=== PATIENT | male | born 1940 | race Caucasian/White ===

== ENCOUNTER → 2016-03-20 | Day surgery (SDC) | payer MEDICARE ==
[~2016-03-20] VITALS: Ht 177.8 cm; Wt 90.7 kg
[~2016-03-20] MED LIST: /GLIP10TAB PO; /SUCR1TA OR; BUPIVACAINE HCL 0.5% 30 ML VIAL As Ordered ONE; BYETTA SC; COLA100C2 OR; DILA2TAB OR; ENAL10TA2 PO; HUMU1INJ2 SC; HYDR1TAB97 PO; INSUDET SC; LIDOCAINE 1% SDV INJ 30 ML VIAL As Ordered ONE; LISI10TA2 PO; METF500T PO; METF500T4 PO; MIDAZOLAM INJ 2 MG/2 ML VIAL (J2250) As Ordered ONE; ONDANSETRON 4MG/2ML VIAL (J2405) As Ordered ONE; PRIL20CA OR; PROPOFOL 200 MG/20 ML VIAL As Ordered ONE; SENNSYP PO; SIMV10TA2 PO; SLOWTAB3 PO; VICO5TAB OR; ZOLPIDEM TARTRATE PO; dexameTHASONE 4 MG/ML 1ML VIAL (J1100) As Ordered ONE; fentaNYL 100 MCG/2 ML INJECTION (J3010) As Ordered ONE
[2016-03-20 09:09] VITALS: BP 152/68
--- NOTE | 2016-03-20 16:54 | RO ---
DATE OF PROCEDURE: 03/20/2016 PREOPERATIVE DIAGNOSIS: Left foot exostosis POSTOPERATIVE DIAGNOSIS: Left foot soft tissue cyst. PROCEDURE: Excision cyst left foot. SURGEON: Raymundo Villela DPM DELIVERY LEAD: none ANESTHESIA: Monitored anesthesia care with preoperative injection of 17 mL of 1:1 mixture of 1% lidocaine plain and 0.5% Marcaine plain. ESTIMATED BLOOD LOSS: Minimal. MATERIALS: #4-0 Vicryl and #4-0 nylon. INJECTABLES: 1 mL of Decadron, 4 mg per mL. SPECIMEN: Left foot cyst. COMPLICATIONS: None. CONDITION: Stable. Mr. Travis Jackson is a 76-year-old male who presents to [facility] with complaints of painful dorsal bump to his left foot. He presents today for surgical correction. The patient's side and site were identified and marked in the preoperative holding area. Consent was reviewed and obtained. The risks, complications, and alternatives to the procedure were explained to the patient in detail. All questions were answered. DESCRIPTION OF PROCEDURE: The patient was brought to the operating room, placed on the operative table in supine position, monitored anesthesia care was delivered by the anesthesia team. Perioperative injection of 17 mL of a 1:1 mixture of 1% lidocaine plain and 0.5% Marcaine plain were injected into the left foot. The patient received Ancef preoperatively. The left foot was prepped and draped in the usual sterile fashion. The tourniquet was inflated to 250 mmHg. A dorsal incision was drawn over the outlined mass to the left foot. This was carried through with a #15 blade. Dissection was carried around, was identified to be a cyst approximately 2 cm in diameter using tenotomy scissors. The cyst was carefully freed from soft tissue attachments and excised in total. This was sent for pathology. There was a small dorsal exostosis, which was smoothed with a rasp. The site was irrigated with normal saline. The cyst appeared to have been arising from the extensor tendons. Incision was closed with #4-0 Vicryl and #4-0 nylon. Sterile dressings were applied, tourniquet was deflated, the patient was brought to the post-anesthesia care unit (PACU), vital signs stable, neurovascular status intact. He will be weightbearing as tolerated on the left foot. He will followup in our office in 2 days. BILLIE
== END | disposition home or self-care (01) ==
LOC: M SDC 05:55
PROVIDERS: ATTEND Podiatrist Foot & Ankle Surgery
DX: M79.89 Other specified soft tissue disorders (principal); E11.21 Type 2 diabetes mellitus with diabetic nephropathy; B35.1 Tinea unguium; M25.775 Osteophyte, left foot; I10 Essential (primary) hypertension; E78.00 Pure hypercholesterolemia, unspecified; M12.9 Arthropathy, unspecified; Z79.899 Other long term (current) drug therapy
CPT/HCPCS: 28039; 88302; J0690; J1100; J2250; J2405; J3010

== ENCOUNTER → 2016-04-19 | Outpatient (CLI) | payer MEDICARE ==
[~2016-04-19] MED LIST changes: -BUPIVACAINE HCL 0.5% 30 ML VIAL As Ordered ONE; +HYDR-3713 PO; -HYDR1TAB97 PO; -LIDOCAINE 1% SDV INJ 30 ML VIAL As Ordered ONE; -MIDAZOLAM INJ 2 MG/2 ML VIAL (J2250) As Ordered ONE; -ONDANSETRON 4MG/2ML VIAL (J2405) As Ordered ONE; -PROPOFOL 200 MG/20 ML VIAL As Ordered ONE; -dexameTHASONE 4 MG/ML 1ML VIAL (J1100) As Ordered ONE; -fentaNYL 100 MCG/2 ML INJECTION (J3010) As Ordered ONE
--- NOTE | 2016-04-19 16:06 | REP ---
Whole body PET / CT scan: Comparison studies are the CT studies of the chest dated 02/11/2016 and 07/20/2015. An enlarging nodular density was noted in the right lower lobe on the comparison chest CTs. Whole body PET / CT scan today is performed from skull base to the upper thighs. Neck and supraclavicular areas: There are no hypermetabolic foci. Chest: There are no hypermetabolic foci. There is no radiolabeling of the right lower lobe lung nodule. The standard uptake value within this nodule is 1.0. Abdomen, pelvis and upper thighs: There is nonspecific bowel uptake. No hypermetabolic foci are identified. Impression: The patients known right lung nodule demonstrates no radiolabeling. There are no hypermetabolic foci otherwise. The study is performed with 9.6 mCi of F-18 FDG. Signed by Kayden Doyle MD 04/19/2016 03:57 P
== END ==
LOC: M RAD 12:04
PROVIDERS: ATTEND Internal Medicine Pulmonary Disease
DX: R91.1 Solitary pulmonary nodule (principal)
CPT/HCPCS: 78815; A9552

== ENCOUNTER → 2016-08-03 | Outpatient (CLI) | payer MEDICARE ==
--- NOTE | 2016-08-03 10:51 | REP ---
MR CERVICAL SPINE WITHOUT CONTRAST: HISTORY: Radiculitis. The examination is incomplete as only sagittal T1- and T2-weighted images were obtained. Disc bulges are present at the C4-5 and C7-T1 levels. Disc bulges with associated osteophyte formation are present at the C5-6 and C6-7 levels. There is minimal to mild effacement of the thecal sac without spinal cords compression. The spinal cord is normal in signal intensity. The C5-6 and C6-7 intervertebral discs are decreased in height consistent with disc degeneration. Normal signal intensity is present in the cervical vertebral bodies. IMPRESSION: Incomplete examination demonstrating cervical spondylosis at the C4-5 through C7-T1 levels. An addendum will be added if the patient returns to complete the examination. Signed by Sammy Dubois MD 08/03/2016 11:06 A
== END ==
LOC: M RAD 09:08
PROVIDERS: ATTEND Pain Medicine Interventional Pain Medicine
DX: M47.812 Spondylosis without myelopathy or radiculopathy, cervical region (principal); M54.12 Radiculopathy, cervical region; M50.321 Other cervical disc degeneration at C4-C5 level; M50.322 Other cervical disc degeneration at C5-C6 level; M50.323 Other cervical disc degeneration at C6-C7 level; M25.512 Pain in left shoulder

== ENCOUNTER 2016-10-17 09:13 | Outpatient (CLI) | payer MEDICARE ==
[~2016-10-17 09:13] MED LIST changes: -METF500T PO; +METF500T13 PO
[2016-10-17] MEDS ORDERED: MIDAZOLAM INJ 2 MG/2 ML VIAL (J2250) As Ordered ONE (10:55)
--- NOTE | 2016-10-17 12:19 | REP ---
MR CERVICAL SPINE WITHOUT CONTRAST: HISTORY: Radiculopathy. COMPARISON: 08/03/2016 A disc bulge is present at the C3-4 level. There is mild effacement of the thecal sac without spinal cord compression. Bilateral uncinate process and left facet hypertrophy are present. These findings produce mild and moderate narrowing of the right and left C3 neural foraminal respectively. A disc bulge and small central disc protrusion are present at the C4-5 level. There is mild effacement of the thecal sac without spinal cord compression. Bilateral uncinate process and left facet hypertrophy are present. These findings produce mild narrowing of the C4 neural foramina. A disc bulge with associated osteophyte formation is present at the C5-6 level. There is mild spinal cord compression. Bilateral uncinate process hypertrophy is present. This produces mild and moderate narrowing of the right and left C5 neural foramina respectively. A disc bulge with associated osteophyte formation is present at the C6-7 level. There is moderate effacement of the thecal sac without spinal cord compression. Bilateral uncinate process hypertrophy is present. This produces moderate narrowing of the C6 neural foramina. There is no other disc bulge or herniation. The remaining neural foramina are patent. The spinal cord is normal in signal intensity. The spinal cord is small in size from the C4-5 level inferior to the C5-6 level. The C5-6 and C6-7 intervertebral discs are decreased in height consistent with disc degeneration. Normal signal intensity is present in the cervical vertebral bodies. IMPRESSION: 1. There is cervical spondylosis at the C3-4 through C6-7 levels most significant at the C5-6 level where there is mild spinal cord compression. 2. 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 Signed by Sammy Dubois MD 10/17/2016 01:07 P
[2016-10-17 12:37] VITALS: BP 134/65
== END 2016-10-17 12:40 ==
LOC: M RAD 09:13
PROVIDERS: ATTEND Nurse Practitioner Family
DX: M47.892 Other spondylosis, cervical region (principal); G95.89 Other specified diseases of spinal cord; M54.12 Radiculopathy, cervical region; M25.512 Pain in left shoulder
CPT/HCPCS: 72141; J2250

== ENCOUNTER 2016-11-22 09:19 | Emergency (ER) | payer MEDICARE ==
[~2016-11-22] VITALS: Ht 175.3 cm; Wt 95.0 kg
[2016-11-22 10:22] LABS: BASO % 0.3 % (0.0-1.0); EOS # 0.4 K/mm3 (0.0-0.50); EOS % 4.3 % (0.0-3.0); LARGE UNSTAINED CELL # 0.1 K/mm3 (0.0-0.4); LARGE UNSTAINED CELL % 1.8 % (0.0-4.0); LYMPH # 1.4 K/mm3 (1.5-4.5); LYMPH % 17.3 % (24.0-44.0); MEAN CORPUSCULAR HEMOGLOBIN 32.8 pg (27.0-33.0); MEAN CORPUSCULAR HGB CONC 35.3 g/dl (32.0-36.5); MEAN CORPUSCULAR VOLUME 92.7 fl (80.0-96.0); MONO # 0.4 K/mm3 (0.0-0.8); MONO % 5.3 % (0.0-5.0); NEUTROPHILS # 5.7 K/mm3 (1.8-7.7); PLATELET COUNT, AUTOMATED 229 k/mm3 (150-450); RED CELL DISTRIBUTION WIDTH 12.6 % (11.5-14.5)
[2016-11-22 10:43] LABS: ERYTHROCYTE SEDIMENTATION RATE 31 mm/hr (0-20)
--- NOTE | 2016-11-22 10:49 | REP ---
Clinical: Pain. Technique: AP, lateral, bilateral oblique views of the left elbow. Findings: Age-related degenerative changes include spurring and cortical irregularity involving the distal humerus as well as the proximal radius and ulna. No acute fracture dislocation. No effusion. Impression: Age-related arthritic degenerative changes. No acute fracture. Signed by Kirit Messer MD 11/22/2016 10:39 A
[2016-11-22 11:44] LABS: ANION GAP 8 MEQ/L (8-16); BLOOD UREA NITROGEN 20 MG/DL (7-18); CALCIUM LEVEL 8.9 MG/DL (8.8-10.2); CARBON DIOXIDE LEVEL 29 MEQ/L (21-32); CHLORIDE LEVEL 104 MEQ/L (98-107); GLOMERULAR FILTRATION RATE > 60.0 (>42); GLUCOSE, FASTING 159 MG/DL (83-110); POTASSIUM SERUM 4.4 MEQ/L (3.5-5.1); SODIUM LEVEL 141 MEQ/L (136-145)
[2016-11-22] MEDS ORDERED: IBUP-1022 PO (11:53)
[2016-11-22 12:13] VITALS: BP 144/63
== END 2016-11-22 12:17 | disposition home or self-care (01) ==
LOC: M ED 09:19
DX: M25.522 Pain in left elbow (principal); E10.9 Type 1 diabetes mellitus without complications; I10 Essential (primary) hypertension; E78.5 Hyperlipidemia, unspecified; Z79.899 Other long term (current) drug therapy; Z79.4 Long term (current) use of insulin

== ENCOUNTER 2017-04-30 08:21 | Emergency (ER) | payer MEDICARE ==
[2017-04-30] MEDS: NS 1,000 ML IV (09:00)
[2017-04-30] MEDS ORDERED: BENZONATATE 100 MG CAP PO (09:15)
[2017-04-30] MEDS: IPRATROPIUM 0.5MG/ALBUTEROL 2.5MG INH SOL UD 3ML (DUONEB)(J7620) NEB (09:18)
[2017-04-30 09:25] LABS: BEDSIDE GLUCOSE 68 MG/DL (83-110)
[2017-04-30 09:26] LABS: BASO % 0.5 % (0.0-1.0); EOS # 0.3 10^3/uL (0.0-0.50); EOS % 3.6 % (0.0-3.0); HEMATOCRIT 39.7 % (42.0-52.0); HEMOGLOBIN 13.5 g/dl (14.0-18.0); IMMATURE GRANULOCYTE % 0.3 % (0-3.0); LYMPH # 1.9 10^3/uL (1.5-4.5); LYMPH % 25.7 % (24.0-44.0); MEAN CORPUSCULAR VOLUME 91.1 fl (80.0-96.0); MONO # 0.7 10^3/uL (0.0-0.8); MONO % 9.7 % (0.0-5.0); NEUTROPHILS # 4.5 10^3/uL (1.8-7.7); NEUTROPHILS % 60.2 % (36.0-66.0); PLATELET COUNT, AUTOMATED 235 10^3/uL (150-450); RED BLOOD COUNT 4.36 10^6/uL (4.30-6.10); RED CELL DISTRIBUTION WIDTH 12.4 % (11.5-14.5); WHITE BLOOD COUNT 7.4 10^3/uL (4.0-10.0)
[2017-04-30 09:47] LABS: ANION GAP 8 MEQ/L (8-16); BLOOD UREA NITROGEN 13 MG/DL (7-18); CALCIUM LEVEL 8.7 MG/DL (8.8-10.2); CARBON DIOXIDE LEVEL 30 MEQ/L (21-32); CHLORIDE LEVEL 102 MEQ/L (98-107); CPK CREATINE PHOSPHOKINASE 190 U/L (39-308); CREATININE FOR GFR 0.79 MG/DL (0.70-1.30); GLOMERULAR FILTRATION RATE > 60.0 (>42); GLUCOSE, FASTING 73 MG/DL (70-100); MB/CK RELATIVE INDEX 0.52 (< OR =4); POTASSIUM SERUM 4.3 MEQ/L (3.5-5.1); SODIUM LEVEL 140 MEQ/L (136-145); TROPONIN I < 0.02 NG/ML (< 0.10)
[2017-04-30 09:52] LABS: INFLUENZA A AMPLIFICATION NEGATIVE (NEGATIVE); INFLUENZA B AMPLIFICATION NEGATIVE (NEGATIVE)
[2017-04-30] MEDS: dexameTHASONE 20 MG/5 ML VIAL (J1100) IV (10:36)
[2017-04-30 11:27] LABS: BEDSIDE GLUCOSE 83 MG/DL (83-110)
== END 2017-04-30 11:31 | disposition home or self-care (01) ==
LOC: M ED 08:21
DX: J20.9 Acute bronchitis, unspecified (principal); J06.9 Acute upper respiratory infection, unspecified; I44.0 Atrioventricular block, first degree; E11.9 Type 2 diabetes mellitus without complications; I10 Essential (primary) hypertension; E78.5 Hyperlipidemia, unspecified; Z87.01 Personal history of pneumonia (recurrent); Z79.4 Long term (current) use of insulin; Z79.899 Other long term (current) drug therapy
CPT/HCPCS: J1100

== ENCOUNTER 2017-05-07 06:16 | Emergency (ER) | payer MEDICARE ==
[2017-05-07] MEDS: ALBUTEROL SULFATE 2.5 MG/0.5 ML INH NEB SOLN INH (07:13)
[2017-05-07 07:15] LABS: BEDSIDE GLUCOSE 124 MG/DL (83-110)
[2017-05-07 07:20] LABS: BASO % 0.3 % (0.0-1.0); EOS # 0.2 10^3/uL (0.0-0.50); EOS % 1.9 % (0.0-3.0); HEMATOCRIT 37.6 % (42.0-52.0); HEMOGLOBIN 12.8 g/dl (14.0-18.0); IMMATURE GRANULOCYTE % 0.7 % (0-3.0); LYMPH # 1.6 10^3/uL (1.5-4.5); LYMPH % 12.7 % (24.0-44.0); MEAN CORPUSCULAR HEMOGLOBIN 30.8 pg (27.0-33.0); MEAN CORPUSCULAR VOLUME 90.4 fl (80.0-96.0); MONO # 1.1 10^3/uL (0.0-0.8); MONO % 8.5 % (0.0-5.0); NEUTROPHILS # 9.8 10^3/uL (1.8-7.7); NEUTROPHILS % 75.9 % (36.0-66.0); PLATELET COUNT, AUTOMATED 297 10^3/uL (150-450); RED BLOOD COUNT 4.16 10^6/uL (4.30-6.10); RED CELL DISTRIBUTION WIDTH 12.5 % (11.5-14.5); WHITE BLOOD COUNT 12.9 10^3/uL (4.0-10.0)
[2017-05-07] MEDS: BENZONATATE 100 MG CAP PO (07:23)
[2017-05-07 07:35] LABS: ANION GAP 8 MEQ/L (8-16); BLOOD UREA NITROGEN 14 MG/DL (7-18); CALCIUM LEVEL 8.7 MG/DL (8.8-10.2); CARBON DIOXIDE LEVEL 29 MEQ/L (21-32); CHLORIDE LEVEL 100 MEQ/L (98-107); CREATININE FOR GFR 0.87 MG/DL (0.70-1.30); GLOMERULAR FILTRATION RATE > 60.0 (>42); GLUCOSE, FASTING 130 MG/DL (70-100); POTASSIUM SERUM 4.8 MEQ/L (3.5-5.1); SODIUM LEVEL 137 MEQ/L (136-145)
== END 2017-05-07 08:32 | disposition home or self-care (01) ==
LOC: M ED 06:16
DX: J01.90 Acute sinusitis, unspecified (principal)
CPT/HCPCS: 71046

== ENCOUNTER 2018-09-21 08:43 | Emergency (ER) | payer MEDICARE ==
[~2018-09-21] VITALS: Ht 175.3 cm; Wt 93.2 kg
[~2018-09-21 08:43] MED LIST changes: -/SUCR1TA OR; +AUGM875T28 PO; +E-ZMIS3 XX; +GUAI1SOL2 PO; +IBUP-1022 PO; +PROAAER10 INH; +SUCR1TAB56 OR; +TERB250T12; +TESS100C PO; +VENTAER IN; +ZOFR4TAB14 PO
--- NOTE | 2018-09-21 09:58 | REP ---
Pelvis, left hip: Three views. History: Trauma. Findings: AP view of the pelvis shows an intact bony pelvic ring. There is mild to moderate bilateral hip joint osteoarthritis, left more so than right. Femoral heads are smooth and rounded. No fracture is seen. Periarticular soft tissues are unremarkable. There is some vascular calcification. Impression: Bilateral hip osteoarthritis, left greater than right. No fracture or subluxation seen. Electronically Signed by Armando Ball MD 09/21/2018 12:04 P
[2018-09-21 10:11] LABS: BASO # 0.1 10^3/uL (0.0-0.2); BASO % 0.7 % (0.0-1.0); EOS # 0.3 10^3/uL (0.0-0.50); EOS % 4.2 % (0.0-3.0); HEMATOCRIT 36.7 % (42.0-52.0); HEMOGLOBIN 12.5 g/dl (13.5-17.5); LYMPH # 1.7 10^3/uL (1.5-4.5); LYMPH % 23.6 % (24.0-44.0); MEAN CORPUSCULAR HEMOGLOBIN 32.3 pg (27.0-33.0); MEAN CORPUSCULAR HGB CONC 34.1 g/dl (32.0-36.5); MEAN CORPUSCULAR VOLUME 94.8 fl (80.0-96.0); MONO # 0.6 10^3/uL (0.0-0.8); MONO % 8.7 % (0.0-5.0); NEUTROPHILS # 4.5 10^3/uL (1.8-7.7); NEUTROPHILS % 62.5 % (36.0-66.0); PLATELET COUNT, AUTOMATED 251 10^3/uL (150-450); RED BLOOD COUNT 3.87 10^6/uL (4.30-6.10); WHITE BLOOD COUNT 7.2 10^3/uL (4.0-10.0)
--- NOTE | 2018-09-21 10:33 | REP ---
Left knee series: Four views. History: Trauma. Findings: Four views of the left knee demonstrate three compartment osteoarthritis. Chondrocalcinosis is noted. Nonarticular patellar spurring is seen consistent with quadriceps and patellar tendinosis tendonitis change. No fracture or subluxation seen. There is fullness in the suprapatellar bursa suggestive of a joint effusion. Impression: Three compartment osteoarthritis. Chondrocalcinosis. Probable joint effusion. No fracture or other acute bony abnormality seen. No sunrise view included. Electronically Signed by Armando Ball MD 09/21/2018 12:05 P
[2018-09-21] MEDS ORDERED: ISOVUE-370 76% 100ML VIAL (Q9967) As Ordered ONE (10:40)
[2018-09-21 10:44] LABS: ALBUMIN 3.7 GM/DL (3.2-5.2); BILIRUBIN,DIRECT 0.2 MG/DL (0.0-0.2); BILIRUBIN,TOTAL 0.6 MG/DL (0.2-1.0)
[2018-09-21 12:15] VITALS: BP 118/69
--- NOTE | 2018-09-21 12:18 | REP ---
CT abdomen and pelvis with IV but without oral contrast: History: Left upper quadrant and left flank pain. Trauma. Comparison CT study is from July 01, 2015. CT contrast dose: 100 ml of intravenous Isovue 370. CT findings: Preliminary digital sewage screen operator radiograph is unremarkable. The lung bases show mild pleuroparenchymal fibrosis bilaterally. There is a oval-shaped area of rounded atelectasis in the left lower lobe abutting the dome of the left hemidiaphragm. This is 4.1 cm in greatest diameter but is entirely unchanged from the July 01, 2015 prior study. There is also some calcific pleural plaquing adjacent to this. No pleural effusion or upper abdominal ascites is seen. The liver and the spleen are normal in size, homogeneous in texture. There is a tiny accessory splenule. No adrenal lesion is seen. The pancreas is unremarkable. The gallbladder shows no abnormality other than a phrygian cap morphology. There is no evidence of hemoperitoneum or pneumoperitoneum. No retroperitoneal hematoma is seen. The kidneys enhance symmetrically and appear morphologically intact. Seminal vesicles and urinary bladder are unremarkable. There is some vas deferens calcification. Dystrophic calcifications are seen in the prostate. Normal inguinal lymph nodes are seen bilaterally. No evidence of lymphadenopathy. No pelvic hematoma or mass lesion is observed. Normal appendix is noted in the right lower quadrant. There are areas of subcutaneous edema in the anterior aspect of the mid abdomen bilaterally which may reflect soft tissue contusion. No abdominal wall defect is seen. Bone window settings show no evidence of lumbar spine or other fracture. There is osteoarthritis of the hips and degenerative spondylosis in the spine. Incidental note is made of a vascular anatomic variant in that splenic artery takes a direct aortic origin. The left gastric appears to take a direct aortic origin as well. Impression: No traumatic intra-abdominal abnormality noted. Subcutaneous edema in the anterior abdominal wall bilaterally may be soft tissue contusions. Electronically Signed by Armando Ball MD 09/21/2018 01:37 P
== END 2018-09-21 12:16 | disposition home or self-care (01) ==
LOC: M ED 08:43
DX: S30.1XXA Contusion of abdominal wall, initial encounter (principal); M23.92 Unspecified internal derangement of left knee; W28.XXXA Contact with powered lawn mower, initial encounter; Y92.9 Unspecified place or not applicable; Y93.89 Activity, other specified; Y99.9 Unspecified external cause status; M16.0 Bilateral primary osteoarthritis of hip; M11.252 Other chondrocalcinosis, left hip; E78.00 Pure hypercholesterolemia, unspecified; I10 Essential (primary) hypertension; Z87.01 Personal history of pneumonia (recurrent); E11.9 Type 2 diabetes mellitus without complications; Z79.4 Long term (current) use of insulin; Z79.899 Other long term (current) drug therapy
CPT/HCPCS: 73502; 73564; 74177; 80047; 80076; 83690; 85025; 99284; Q9967

== ENCOUNTER → 2018-11-22 | Outpatient (REF) | payer MEDICARE ==
[~2018-11-22] MED LIST changes: +LISI10TA15 PO; -LISI10TA2 PO
== END ==
LOC: M LAB REF 10:12
PROVIDERS: ATTEND Nurse Practitioner
DX: R19.7 Diarrhea, unspecified (principal); R10.9 Unspecified abdominal pain

== ENCOUNTER 2018-12-05 10:23 | Day surgery (SDC) | payer MEDICARE ==
[~2018-12-05] VITALS: Ht 175.3 cm; Wt 95.3 kg
[2018-12-05] MEDS: NS 1,000 ML IV ONE (11:00)
[2018-12-05] MEDS ORDERED: PROPOFOL 500 MG/50 ML VIAL As Ordered ONE (11:34)
[2018-12-05] MEDS ORDERED: LIDOCAINE 2% INJ 100 MG/5 ML SDV (FOR ANES.) As Ordered ONE (11:34)
--- NOTE | 2018-12-05 11:46 | ROOR ---
Patient Name: Travis Jackson Procedure Date: 12/05/2018 11:25 AM Date of : 1940 Age: 78 Room: [facility] Gender: Male Note Status: Finalized Procedure: Colonoscopy Indications: Clinically significant diarrhea of unexplained origin Providers: Nick Mena Jr, MD Referring MD: KAROLYN MAYES MD Requesting Provider: Medicines: Propofol per Anesthesia Complications: No immediate complications. Procedure: Pre-Anesthesia Assessment: - Prior to the procedure, a History and Physical was performed, and patient medications and allergies were reviewed. The patient is competent. The risks and benefits of the procedure and the sedation options and risks were discussed with the patient. All questions were answered and informed consent was obtained. Patient identification and proposed procedure were verified by the physician and the nurse in the pre-procedure area and in the procedure room. Mental Status Examination: alert and oriented. Airway Examination: normal oropharyngeal airway and neck mobility. Respiratory Examination: clear to auscultation. CV Examination: normal. ASA Grade Assessment: II - A patient with mild systemic disease. After reviewing the risks and benefits, the patient was deemed in satisfactory condition to undergo the procedure. The anesthesia plan was to use moderate sedation / analgesia (conscious sedation). Immediately prior to administration of medications, the patient was re-assessed for adequacy to receive sedatives. The heart rate, respiratory rate, oxygen saturations, blood pressure, adequacy of pulmonary ventilation, and response to care were monitored throughout the procedure. The physical status of the patient was re-assessed after the procedure. The Colonoscope was introduced through the anus and advanced to the cecum, identified by appendiceal orifice and ileocecal valve. The colonoscopy was performed without difficulty. The patient tolerated the procedure well. The quality of the bowel preparation was adequate. Findings: The rectum, recto-sigmoid colon, descending colon, transverse colon, ascending colon, cecum, appendiceal orifice and ileocecal valve appeared normal. Biopsies for histology were taken with a cold forceps from the ascending colon, transverse colon, descending colon and sigmoid colon for evaluation of microscopic colitis. Multiple small-mouthed diverticula were found in the sigmoid colon. Non-bleeding hemorrhoids were found during endoscopy. The hemorrhoids were moderate, Grade II (internal hemorrhoids that prolapse but reduce spontaneously) and Grade III (internal hemorrhoids that prolapse but require manual reduction). Impression: - The rectum, recto-sigmoid colon, descending colon, transverse colon, ascending colon, cecum, appendiceal orifice and ileocecal valve are normal. Biopsied. - Diverticulosis in the sigmoid colon. - Non-bleeding hemorrhoids. Recommendation: - Repeat colonoscopy in 10 years for screening purposes. Nick Mena MD Nick Mena Jr, MD 12/05/2018 11:45:55 AM Electronically signed by Nick Mena Jr, MD Number of Addenda: 0 Note Initiated On: 12/05/2018 11:25 AM Estimated Blood Loss: Estimated blood loss: none.
[2018-12-05 12:05] VITALS: BP 123/82
== END 2018-12-05 12:17 | disposition home or self-care (01) ==
LOC: M OPP 10:23
PROVIDERS: ATTEND Surgery
DX: K64.2 Third degree hemorrhoids (principal); K57.30 Diverticulosis of large intestine without perforation or abscess without bleeding; R19.7 Diarrhea, unspecified; E11.9 Type 2 diabetes mellitus without complications; I10 Essential (primary) hypertension; Z79.4 Long term (current) use of insulin; Z79.899 Other long term (current) drug therapy

== ENCOUNTER → 2018-12-26 | Outpatient (CLI) | payer MEDICARE ==
[2018-12-26 10:23] LABS: BASO # 0.1 10^3/uL (0.0-0.2); BASO % 0.7 % (0.0-1.0); EOS # 0.3 10^3/uL (0.0-0.5); EOS % 3.9 % (0.0-3.0); HEMATOCRIT 41.3 % (42.0-52.0); HEMOGLOBIN 13.5 g/dl (13.5-17.5); LYMPH % 22.8 % (24.0-44.0); MEAN CORPUSCULAR HGB CONC 32.7 g/dl (32.0-36.5); MEAN CORPUSCULAR VOLUME 94.9 fl (80.0-96.0); MONO # 0.7 10^3/uL (0.0-0.8); MONO % 7.6 % (0.0-5.0); NEUTROPHILS # 5.7 10^3/uL (1.5-8.5); NEUTROPHILS % 64.7 % (36.0-66.0); PLATELET COUNT, AUTOMATED 230 10^3/uL (150-450); RED BLOOD COUNT 4.35 10^6/uL (4.30-6.10); WHITE BLOOD COUNT 8.8 10^3/uL (4.0-10.0)
[2018-12-26 10:46] LABS: BLOOD UREA NITROGEN 17 MG/DL (7-18); CALCIUM LEVEL 9.5 MG/DL (8.8-10.2); CARBON DIOXIDE LEVEL 33 MEQ/L (21-32); CHLORIDE LEVEL 104 MEQ/L (98-107); CREATININE FOR GFR 0.85 MG/DL (0.70-1.30); GLOMERULAR FILTRATION RATE > 60.0 (>42); GLUCOSE, FASTING 161 MG/DL (70-100); POTASSIUM SERUM 4.9 MEQ/L (3.5-5.1); SODIUM LEVEL 139 MEQ/L (136-145)
== END ==
LOC: M SMT 08:09
PROVIDERS: ATTEND Physician Assistant
DX: Z78.9 Other specified health status (principal); I10 Essential (primary) hypertension

== ENCOUNTER 2019-01-06 07:18 | Emergency (ER) | payer MEDICARE ==
[~2019-01-06] VITALS: Ht 175.3 cm; Wt 95.5 kg
[2019-01-06] MEDS ORDERED: GI COCKTAIL 50ML BTL(HYOSCYAMINE/MAALOX/LIDOCAINE VISCOUS)(1:3:1) PO ONE (07:45)
[2019-01-06 07:47] LABS: BASO # 0.1 10^3/uL (0.0-0.2); BASO % 0.5 % (0.0-1.0); EOS # 0.5 10^3/uL (0.0-0.5); EOS % 4.3 % (0.0-3.0); HEMATOCRIT 41.7 % (42.0-52.0); HEMOGLOBIN 14.1 g/dl (13.5-17.5); LYMPH # 2.5 10^3/uL (1.5-5.0); LYMPH % 22.6 % (24.0-44.0); MEAN CORPUSCULAR HEMOGLOBIN 31.6 pg (27.0-33.0); MEAN CORPUSCULAR HGB CONC 33.8 g/dl (32.0-36.5); MEAN CORPUSCULAR VOLUME 93.5 fl (80.0-96.0); MONO # 0.8 10^3/uL (0.0-0.8); MONO % 7.3 % (0.0-5.0); NEUTROPHILS # 7.2 10^3/uL (1.5-8.5); NEUTROPHILS % 64.8 % (36.0-66.0); PLATELET COUNT, AUTOMATED 263 10^3/uL (150-450); RED BLOOD COUNT 4.46 10^6/uL (4.30-6.10)
[2019-01-06 08:02] LABS: PROTHROMBIN TIME 12.9 SECONDS (11.8-14.0)
[2019-01-06 08:03] LABS: PARTIAL THROMBOPLASTIN TIME 29.2 SECONDS (25.0-38.4)
--- NOTE | 2019-01-06 08:14 | REP ---
Clinical: Chest pain. Comparison: 05/07/2017. Findings: Mediastinum and cardiac silhouette are stable. Lung ponce demonstrate chronic interstitial changes. No obvious focal consolidation, effusion, or pneumothorax. Skeletal structures demonstrate age-related degenerative changes. Impression: Chronic stable changes. No obvious consolidation. Fluid trace left basilar atelectasis. Electronically Signed by Kirit Messer MD 01/06/2019 08:05 A
[2019-01-06 08:15] LABS: ALBUMIN 3.9 GM/DL (3.2-5.2); ALT/SGPT 16 U/L (12-78); BILIRUBIN,DIRECT 0.2 MG/DL (0.0-0.2); BILIRUBIN,TOTAL 0.9 MG/DL (0.2-1.0); BLOOD UREA NITROGEN 17 MG/DL (7-18); CALCIUM LEVEL 9.5 MG/DL (8.8-10.2); CARBON DIOXIDE LEVEL 30 MEQ/L (21-32); CHLORIDE LEVEL 105 MEQ/L (98-107); CK-MB VALUE MASS < 1.0 NG/ML (<3.6); CPK CREATINE PHOSPHOKINASE 54 U/L (39-308); CREATININE FOR GFR 0.85 MG/DL (0.70-1.30); FREE T4 0.91 NG/DL (0.76-1.46); GLOMERULAR FILTRATION RATE > 60.0 (>42); GLUCOSE, FASTING 61 MG/DL (70-100); LIPASE 462 U/L (73-393); MAGNESIUM LEVEL 1.4 MG/DL (1.8-2.4); MB/CK RELATIVE INDEX 1.85 (< OR =4); POTASSIUM SERUM 4.1 MEQ/L (3.5-5.1); SODIUM LEVEL 141 MEQ/L (136-145); TOTAL PROTEIN 7.3 GM/DL (6.4-8.2); TROPONIN I 0.02 NG/ML (< 0.10)
[2019-01-06] MEDS ORDERED: MORPHINE 2 MG/ML 1ML VIAL (J2270) IV PRN (08:30)
[2019-01-06] MEDS ORDERED: ONDANSETRON 4MG/2ML VIAL (J2405) IV ONE (08:30)
[2019-01-06] MEDS ORDERED: MAG SULF 1GM/100ML (MAG RUN) 1 GM in IV 1 EA IV ONE (08:30)
[2019-01-06] MEDS ORDERED: ISOVUE-370 76% 100ML VIAL (Q9967) As Ordered ONE (08:41)
--- NOTE | 2019-01-06 09:20 | REP ---
Clinical: Acute periumbilical pain. Technique: Axial contrast enhanced images from the lung bases to the pubic symphysis using 100 ml Isovue 370 intravenous contrast material with coronal and sagittal re-formations. Comparison: 09/21/2018. Findings: Lung ponce demonstrate chronic COPD/emphysematous changes with fibrosis, scarring, bronchiectasis and stable ill-defined partially calcified pleural plaque along the left posterior diaphragmatic surface which appears essentially unchanged as compared to 10/30/[address] Hepatic steatosis without focal hepatic lesion. Spleen, pancreas, gallbladder, bilateral adrenal glands and kidneys are relatively normal / stable. Kidneys demonstrate symmetric cortical thinning consistent with chronic medical renal disease. The enteric system is without obstruction or acute inflammatory process. Normal terminal ileum and appendix are identified in the right lower quadrant. Scattered sigmoid diverticula noted without acute diverticulitis. Pelvis demonstrates normal bladder and age appropriate prostate/seminal vesicles. No ascites. No free air. No adenopathy. Atherosclerotic changes to the aorta and vasculature without aneurysm or dissection. Musculoskeletal structures demonstrate degenerative changes without focal abnormality. No significant hernia. Impression: 1. Chronic changes to the bilateral lung bases. 2. Hepatic steatosis without focal hepatic lesion. 3. Chronic age-related medical renal disease without hydronephrosis or perinephric stranding. 4. Few scattered sigmoid diverticula without acute diverticulitis. 5. No further acute abdominopelvic pathology appreciated. No ascites. No free air. No adenopathy. Electronically Signed by Kirit Messer MD 01/06/2019 09:12 A
[2019-01-06 10:46] VITALS: BP 139/69
--- NOTE | 2019-01-06 20:22 | ECGEPIP ---
[facility] - ED Test Date: 2019-01-06 Pat Name: MARIFER SESAY Department: Room: - Gender: Male [employer] Business Analyst: robb : 1940 Requested By: Modesto Mariscal Order Number: [id number] Reading MD: Modesto Mariscal Measurements Intervals [place] Rate: 76 P: 71 DE: 211 QRS: -2 QRSD: 86 T: 66 QT: 375 QTc: 422 Interpretive Statements SINUS RHYTHM WITH FIRST DEGREE AV BLOCK WITH FREQUENT VENTRICULAR PREMATURE COMPLEX COMPLEXES MINIMAL ST DEPRESSION PRIOR INFERIOR INFARCTION AGE UNDETERMINED DELAYED R WAVE PROGRESSION CW 04/30/[address] T WAVE CHANGES Electronically Signed on 01-06-2019 20:21:47 EDT by Modesto Mariscal
== END 2019-01-06 11:15 | disposition home or self-care (01) ==
LOC: M ED 07:18
DX: E83.42 Hypomagnesemia (principal); K85.90 Acute pancreatitis without necrosis or infection, unspecified; R94.31 Abnormal electrocardiogram [ECG] [EKG]; E11.9 Type 2 diabetes mellitus without complications; I10 Essential (primary) hypertension; Z79.4 Long term (current) use of insulin; Z79.899 Other long term (current) drug therapy; Z82.49 Family history of ischemic heart disease and other diseases of the circulatory system
CPT/HCPCS: 71045; 74177; 80048; 80076; 82550; 82553; 83690; 83735; 84439; 84443; 84484; 85025; 85610; 85730; 93005; 93041; 94760; 96374; 99284; J2270; J2405; J3475; Q9967

== ENCOUNTER → 2019-01-13 | Outpatient (CLI) | payer MEDICARE ==
[2019-01-13 12:03] LABS: HEMATOCRIT 41.7 % (42.0-52.0); HEMOGLOBIN 13.3 g/dl (13.5-17.5); MEAN CORPUSCULAR HGB CONC 31.9 g/dl (32.0-36.5); MEAN CORPUSCULAR VOLUME 97.2 fl (80.0-96.0); PLATELET COUNT, AUTOMATED 263 10^3/uL (150-450); RED BLOOD COUNT 4.29 10^6/uL (4.30-6.10); WHITE BLOOD COUNT 10.5 10^3/uL (4.0-10.0)
[2019-01-13 12:11] LABS: AMYLASE 32 U/L (25-115); LIPASE 137 U/L (73-393)
[2019-01-13 12:15] LABS: ALT/SGPT 15 U/L (12-78); BILIRUBIN,TOTAL 0.9 MG/DL (0.2-1.0); BLOOD UREA NITROGEN 17 MG/DL (7-18); CALCIUM LEVEL 9.5 MG/DL (8.8-10.2); CARBON DIOXIDE LEVEL 30 MEQ/L (21-32); CHLORIDE LEVEL 105 MEQ/L (98-107); CREATININE FOR GFR 0.89 MG/DL (0.70-1.30); GLOMERULAR FILTRATION RATE > 60.0 (>42); GLUCOSE, FASTING 102 MG/DL (70-100); POTASSIUM SERUM 4.7 MEQ/L (3.5-5.1); SODIUM LEVEL 141 MEQ/L (136-145); TOTAL PROTEIN 7.5 GM/DL (6.4-8.2)
[2019-01-13 13:04] LABS: HEMOGLOBIN A1c 8.1 %
== END ==
LOC: M SMT 08:21
PROVIDERS: ATTEND Internal Medicine
DX: E11.9 Type 2 diabetes mellitus without complications (principal)

== ENCOUNTER → 2019-02-25 | Outpatient (CLI) | payer MEDICARE ==
[~2019-02-25] MED LIST changes: +SIMV10TA21 PO
--- NOTE | 2019-02-25 09:08 | REP ---
Chest x-ray: Two views. History: Acute bronchitis. Comparison study: January 06, 2019. Findings: The lungs are symmetrically aerated and free of infiltrate. Heart is not enlarged. Pleural angles are sharp. There are degenerative changes in the thoracic spine. Impression: No acute disease. Electronically Signed by Armando Ball MD 02/25/2019 08:59 A
== END ==
LOC: M WUC 08:41
PROVIDERS: ATTEND Physician Assistant
DX: J20.9 Acute bronchitis, unspecified (principal)

== ENCOUNTER → 2019-08-25 | Outpatient (CLI) | payer MEDICARE | LOC: M LABSMTC 10:07 | PROVIDERS: ATTEND Anesthesiology | DX: Z03.818 Encounter for observation for suspected exposure to other biological agents ruled out (principal) | CPT/HCPCS: C9803; U0003 ==

== ENCOUNTER 2019-08-28 11:23 | Day surgery (SDC) | payer MEDICARE ==
[~2019-08-28] VITALS: Ht 175.3 cm; Wt 92.1 kg
[~2019-08-28 11:23] MED LIST changes: +LIDOCAINE 2% 100MG/5ML SDV (FOR ANES.) As Ordered ONE; +NS 1,000 ML IV ONE; +propofoL 200 MG/20 ML VIAL As Ordered ONE
[2019-08-28] MEDS ORDERED: D5W/0.45% SODIUM CHLORIDE 1,000 ML IV SCH (12:00)
[2019-08-28] MEDS ORDERED: fentaNYL 100 MCG/2 ML INJECTION (J3010) As Ordered ONE (12:03)
--- NOTE | 2019-08-28 12:30 | ROOR ---
Patient Name: Travis Jackson Procedure Date: 08/28/2019 11:59 AM Date of : 1940 Age: 79 Room: [facility] Gender: Male Note Status: Finalized Procedure: Upper GI endoscopy Indications: Epigastric abdominal pain, Previously treated for Helicobacter pylori Providers: Robbie Serrano MD Referring MD: KAROLYN MAYES MD Requesting Provider: Medicines: Monitored Anesthesia Care Complications: No immediate complications. Procedure: Pre-Anesthesia Assessment: - Prior to the procedure, a History and Physical was performed, and patient medications and allergies were reviewed. The patient is competent. The risks and benefits of the procedure and the sedation options and risks were discussed with the patient. All questions were answered and informed consent was obtained. Patient identification and proposed procedure were verified by the physician, the nurse and the anesthesiologist in the procedure room. Mental Status Examination: alert and oriented. Airway Examination: normal oropharyngeal airway and neck mobility. Respiratory Examination: clear to auscultation. CV Examination: normal. Prophylactic Antibiotics: The patient does not require prophylactic antibiotics. Prior Anticoagulants: The patient has taken no previous anticoagulant or antiplatelet agents. ASA Grade Assessment: II - A patient with mild systemic disease. After reviewing the risks and benefits, the patient was deemed in satisfactory condition to undergo the procedure. The anesthesia plan was to use monitored anesthesia care (MAC). Immediately prior to administration of medications, the patient was re-assessed for adequacy to receive sedatives. The heart rate, respiratory rate, oxygen saturations, blood pressure, adequacy of pulmonary ventilation, and response to care were monitored throughout the procedure. The physical status of the patient was re-assessed after the procedure. The Endoscope was introduced through the mouth, and advanced to the second part of duodenum. The upper GI endoscopy was accomplished without difficulty. The patient tolerated the procedure well. Findings: The examined esophagus was normal. The Z-line was regular and was found 40 cm from the incisors. Scattered mild inflammation characterized by erythema and granularity was found in the gastric antrum. Biopsies were taken with a cold forceps for Helicobacter pylori testing. Verification of patient identification for the specimen was done by the physician and nurse using the patient's name, date and medical record number. Estimated blood loss was minimal. The duodenal bulb and second portion of the duodenum were normal. Biopsies for histology were taken with a cold forceps for evaluation of celiac disease. Impression: - Normal esophagus. - Z-line regular, 40 cm from the incisors. - Gastritis. Biopsied. - Normal duodenal bulb and second portion of the duodenum. Biopsied. Recommendation: - Patient has a contact number available for emergencies. The signs and symptoms of potential delayed complications were discussed with the patient. Return to normal activities tomorrow. Written discharge instructions were provided to the patient. - High fiber diet. - Continue present medications. - Await pathology results. - Return to GI clinic in 2 weeks. - Return to primary care physician. Robbie Serrano MD Robbie Serrano MD 08/28/2019 12:30:29 PM Electronically signed by Robbie Serrano MD Number of Addenda: 0 Note Initiated On: 08/28/2019 11:59 AM Estimated Blood Loss: Estimated blood loss was minimal.
[2019-08-28 12:45] VITALS: BP 179/87
== END 2019-08-28 13:01 | disposition home or self-care (01) ==
LOC: M OPP 11:23
PROVIDERS: ATTEND Internal Medicine Gastroenterology
DX: K29.70 Gastritis, unspecified, without bleeding (principal); R10.13 Epigastric pain; Z79.84 Long term (current) use of oral hypoglycemic drugs; Z79.899 Other long term (current) drug therapy
CPT/HCPCS: 43239; 88305; J3010

== ENCOUNTER 2020-06-04 09:45 | Emergency (ER) | payer MEDICARE ==
[~2020-06-04] VITALS: Ht 175.3 cm; Wt 85.9 kg
[~2020-06-04 09:45] MED LIST changes: -LIDOCAINE 2% 100MG/5ML SDV (FOR ANES.) As Ordered ONE; -NS 1,000 ML IV ONE; -propofoL 200 MG/20 ML VIAL As Ordered ONE
[2020-06-04] MEDS ORDERED: NORCO, ANEXSIA 5/325MG TABLET (HYDROcodone/ACETAMINOPHEN) PO ONE (10:40)
--- NOTE | 2020-06-04 10:44 | REP ---
INDICATION: flank pain h/o stones COMPARISON: None. TECHNIQUE: CT Scan of the abdomen and pelvis was performed without intravenous contrast. Sagittal and coronal reconstruction images performed. FINDINGS: Lung bases: Bibasilar fibrotic change. Liver: Grossly unremarkable. Gallbladder: Unremarkable. Spleen: Grossly unremarkable.. Adrenals: Normal. Pancreas: Grossly unremarkable.. Kidneys: No hydronephrosis or nephrolithiasis. Ureters demonstrate no dilatation or calculus. Small and large bowel: Grossly unremarkable. Free fluid: None. Abdominal aorta: No aneurysm. Adenopathy: None. Appendix: Not inflamed. Osseous structures: There are degenerative changes the spine without compression deformity. Pelvis: No mass. No bladder calculus seen. IMPRESSION: Negative non-contrast CT abdomen and pelvis. <Electronically signed by Kayden Monique > 06/04/20 [id number]
[2020-06-04 10:46] LABS: BASO # 0.1 10^3/uL (0.0-0.2); BASO % 0.6 % (0.0-1.0); EOS # 0.3 10^3/uL (0.0-0.5); EOS % 3.3 % (0.0-3.0); HEMATOCRIT 37.2 % (42.0-52.0); HEMOGLOBIN 12.5 g/dl (13.5-17.5); LYMPH # 1.7 10^3/uL (1.5-5.0); LYMPH % 21.5 % (24.0-44.0); MEAN CORPUSCULAR HEMOGLOBIN 31.4 pg (27.0-33.0); MEAN CORPUSCULAR HGB CONC 33.6 g/dl (32.0-36.5); MEAN CORPUSCULAR VOLUME 93.5 fl (80.0-96.0); MONO # 0.7 10^3/uL (0.0-0.8); MONO % 8.7 % (2.0-8.0); NEUTROPHILS # 5.2 10^3/uL (1.5-8.5); NEUTROPHILS % 65.5 % (36.0-66.0); PLATELET COUNT, AUTOMATED 285 10^3/uL (150-450); RED BLOOD COUNT 3.98 10^6/uL (4.30-6.10); WHITE BLOOD COUNT 7.9 10^3/uL (4.0-10.0)
[2020-06-04 11:12] LABS: BLOOD UREA NITROGEN 17 MG/DL (7-18); CALCIUM LEVEL 9.1 MG/DL (8.8-10.2); CARBON DIOXIDE LEVEL 29 MEQ/L (21-32); CHLORIDE LEVEL 103 MEQ/L (98-107); CREATININE FOR GFR 0.73 MG/DL (0.70-1.30); GLOMERULAR FILTRATION RATE > 60.0 (>42); GLUCOSE, FASTING 116 MG/DL (70-100); POTASSIUM SERUM 4.3 MEQ/L (3.5-5.1); SODIUM LEVEL 138 MEQ/L (136-145)
[2020-06-04] MEDS ORDERED: HYDR-3713 PO (11:59)
[2020-06-04 12:16] VITALS: BP 139/65
== END 2020-06-04 12:17 | disposition home or self-care (01) ==
LOC: M ED 09:45
DX: R10.9 Unspecified abdominal pain (principal); E11.9 Type 2 diabetes mellitus without complications; I10 Essential (primary) hypertension; E78.5 Hyperlipidemia, unspecified; Z79.4 Long term (current) use of insulin; Z79.899 Other long term (current) drug therapy

== ENCOUNTER → 2020-06-11 | Outpatient (REF) | payer MEDICARE | LOC: M SMT 13:29 | PROVIDERS: ATTEND Urology | DX: R39.9 Unspecified symptoms and signs involving the genitourinary system (principal) | CPT/HCPCS: 51798; 81002; 87086; G0463 ==

== ENCOUNTER → 2020-09-16 | Outpatient (CLI) | payer MEDICARE ==
[2020-09-16 08:21] LABS: BASO % 0.6 % (0.0-1.0); EOS # 0.3 10^3/uL (0.0-0.5); EOS % 4.2 % (0.0-3.0); HEMOGLOBIN 12.9 g/dl (13.5-17.5); LYMPH # 1.7 10^3/uL (1.5-5.0); LYMPH % 26.6 % (24.0-44.0); MEAN CORPUSCULAR HEMOGLOBIN 31.4 pg (27.0-33.0); MEAN CORPUSCULAR HGB CONC 32.3 g/dl (32.0-36.5); MEAN CORPUSCULAR VOLUME 97.3 fl (80.0-96.0); MONO # 0.5 10^3/uL (0.0-0.8); MONO % 7.5 % (2.0-8.0); NEUTROPHILS # 3.9 10^3/uL (1.5-8.5); NEUTROPHILS % 60.8 % (36.0-66.0); PLATELET COUNT, AUTOMATED 293 10^3/uL (150-450); RED BLOOD COUNT 4.11 10^6/uL (4.30-6.10); WHITE BLOOD COUNT 6.4 10^3/uL (4.0-10.0)
[2020-09-16 08:48] LABS: ALBUMIN 3.8 GM/DL (3.2-5.2); ALT/SGPT 16 U/L (12-78); BILIRUBIN,DIRECT 0.2 MG/DL (0.0-0.2); BILIRUBIN,TOTAL 0.9 MG/DL (0.2-1.0); BLOOD UREA NITROGEN 12 MG/DL (7-18); CREATININE FOR GFR 0.74 MG/DL (0.70-1.30); GLOMERULAR FILTRATION RATE > 60.0 (>42); IRON (FE) 113 UG/DL (65-175); PERCENT SATURATION 39.8 % (19.7-50.0); TOTAL IRON BINDING CAPACITY 284 UG/DL (250-450); TOTAL PROTEIN 7.2 GM/DL (6.4-8.2)
[2020-09-16 11:15] LABS: FOLATE 12.6 NG/ML; VITAMIN B12 LEVEL 212 PG/ML
[2020-09-18 01:11] LABS: IGASUB3 34.2 mg/dL (13.4-97.9)
== END ==
LOC: M LAB 07:19
PROVIDERS: ATTEND Internal Medicine Gastroenterology
DX: R14.0 Abdominal distension (gaseous) (principal); E11.9 Type 2 diabetes mellitus without complications; Z79.4 Long term (current) use of insulin

== ENCOUNTER → 2020-09-19 | Outpatient (REF) | payer MEDICARE ==
[2020-09-27 18:11] LABS: FATS NEUTRAL Normal (.); FATS TOTAL Normal (.); H PYLORI STOOL ANTIGEN Negative (Negative)
== END ==
LOC: M LAB REF 10:31
PROVIDERS: ATTEND Internal Medicine Gastroenterology
DX: R14.0 Abdominal distension (gaseous) (principal)

== ENCOUNTER → 2020-10-01 | Outpatient (CLI) | payer MEDICARE ==
--- NOTE | 2020-10-01 08:37 | REP ---
INDICATION: N50.8 [place]. COMPARISON: None. TECHNIQUE: Sonographic evaluation of the scrotum and contents with color imaging and duplex Doppler interrogation. FINDINGS: The right testis is 4 x 2.4 x 3.1 cm in greatest diameter with a calculated volume of 15.4 cc. The left testis is 3.9 x 2.4 x 3.2 cm with a calculated volume of 15.6 cm. Both testes are homogeneous in echotexture without focal mass, cyst or abnormal calcification. Symmetric blood flow to the testes. Scrotal wall thickness is 3 mm on both sides. The epididymal head is 9 mm in CC diameter on the right and left side with some slight heterogeneity of that epididymis. No evident most cyst. Trace fluid about the testes. Doppler interrogation shows resistive index 0.64 on the right and 0.71 on the left, normal. See no evidence of a hydrocele. No evidence for torsion. I see no abnormal of hyperemia to either epididymal head. IMPRESSION: 1. Normal bilateral homogeneous appearance to the testes without mass, calcification cyst. Trace fluid in the scrotal sac. There is normal color and Doppler flow to both testes, no torsion. 2. No evidence of varicocele. 3. Slight heterogeneity to the epididymal heads on both sides. However they are not abnormally enlarged and show no hyperemia. This is a finding of doubtful significance. <Electronically signed by Pierce Erwin > 10/01/20 0814
== END ==
LOC: M WHC 06:58
PROVIDERS: ATTEND Nurse Practitioner Family
DX: N50.819 Testicular pain, unspecified (principal)

== ENCOUNTER → 2020-10-07 | Outpatient (CLI) | payer MEDICARE ==
--- NOTE | 2020-10-07 10:40 | REP ---
INDICATION: ORCHALGIA. COMPARISON: Multiple latest 06/04/2020 TECHNIQUE: Limited noncontrast enhanced helical technique without intravenous or oral bowel preparatory contrast administration FINDINGS: There is no change in appearance of the lung bases. There is a left lower lobe regular density which abuts the left hemidiaphragm and is completely unchanged from a CT examination obtained 07/01/2015. Limited evaluation of the solid intra-organs and gallbladder show no acute abnormality or significant change from the prior exam. Limited evaluation of the pancreas, adrenal glands, and kidneys show no acute abnormalities or significant changes from the prior exam. Limited evaluation of the abdominal aorta and para-aortic regions show no gross abnormalities or significant changes from the prior exam. Limited evaluation of the bowel loops and the mesenteries shows no acute abnormalities or significant changes from the prior exam. There is no free fluid or free air. There is no evidence of a mass or adenopathy. Bone window technique throughout the examination shows no significant change in appearance of the osseous structures. IMPRESSION: Limited noncontrast enhanced examination showing no evidence of acute disease or significant change compared to prior exams as described above. <Electronically signed by Lawson Horowitz > 10/07/20 1034
== END ==
LOC: M RAD 09:33
PROVIDERS: ATTEND Nurse Practitioner Family
DX: N50.819 Testicular pain, unspecified (principal); R10.30 Lower abdominal pain, unspecified

== ENCOUNTER → 2021-10-27 | Outpatient (CLI) | payer MEDICARE ==
[~2021-10-27] MED LIST changes: -LISI10TA15 PO; +LISI10TA24 PO; -TERB250T12; +TERB250T91
== END ==
LOC: M RAD 07:46
PROVIDERS: ATTEND Internal Medicine Pulmonary Disease
DX: R06.02 Shortness of breath (principal)

== ENCOUNTER → 2022-09-04 | Outpatient (CLI) | payer MEDICARE | LOC: M WUC 08:43 | PROVIDERS: ATTEND Internal Medicine | DX: R05.9 Cough, unspecified (principal); R91.8 Other nonspecific abnormal finding of lung field ==

== ENCOUNTER → 2023-04-26 | Outpatient (REF) | payer MEDICARE ==
[2023-04-26 14:27] LABS: APPEARANCE, URINE CLEAR (CLEAR); BACTERIA, URINE AUTO NEGATIVE (NEGATIVE); BILIRUBIN, URINE AUTO NEGATIVE (NEGATIVE); BLOOD, URINE BLOOD NEGATIVE (NEGATIVE); COLOR, URINE YELLOW (YELLOW); GLUCOSE, URINE (UA) AUTO NEGATIVE (NEGATIVE); KETONE, URINE AUTO NEGATIVE (NEGATIVE); LEUKOCYTE ESTERASE, URINE AUTO TRACE (NEGATIVE); NITRITE, URINE AUTO NEGATIVE (NEGATIVE); PROTEIN, URINE AUTO NEGATIVE (NEGATIVE); RBC, URINE AUTO 0 /HPF (0-3); SPECIFIC GRAVITY URINE AUTO 1.014 (1.002-1.035); SQUAMOUS EPITHELIAL CELL UR AU 0 /HPF (0-6); UROBILINOGEN, URINE AUTO 0.2 mg/dL (0.0-2.0); WBC, URINE AUTO 8 /HPF (0-3)
== END ==
LOC: M LABSMT 10:56
PROVIDERS: ATTEND Urology
DX: R39.9 Unspecified symptoms and signs involving the genitourinary system (principal)

== ENCOUNTER → 2023-07-16 | Outpatient (CLI) | payer MEDICARE ==
[~2023-07-16] MED LIST changes: +ISOVUE-370 76% 100ML VIAL ONE
== END ==
LOC: M PLAIMG 08:28
PROVIDERS: ATTEND Internal Medicine Gastroenterology
DX: R10.30 Lower abdominal pain, unspecified (principal); R15.9 Full incontinence of feces; K58.9 Irritable bowel syndrome, unspecified
CPT/HCPCS: 74178; Q9967

== ENCOUNTER → 2024-10-02 | Outpatient (CLI) | payer MEDICARE ==
[~2024-10-02] MED LIST changes: -ISOVUE-370 76% 100ML VIAL ONE
== END ==
LOC: M RAD 09:05
PROVIDERS: ATTEND Nurse Practitioner Acute Care
DX: M79.604 Pain in right leg (principal)